=== PATIENT | female | born 1960 | race Caucasian/White ===

== ENCOUNTER 2017-02-14 21:32 | Emergency (ER) | payer OTHER ==
[~2017-02-14] VITALS: Ht 172.7 cm; Wt 84.1 kg
[~2017-02-14 21:32] MED LIST: ASPI-973 PO; ATEN50TA PO; ATOR20TA65 PO; BUSP15TA3 PO; FLUT16SP NS; HYDR-656 PO; LACT10SO60 PO; LORA-302 PO; MAGN400C PO; NALT50TA PO; PANT40TA3 PO; POTA20TA16 PO; PREN1TAB25 PO; QUET25TA73 PO; SERT50TA9 PO; SPIR25TA PO; SULF-239 PO; THIA100T64 PO; TRAZ-115 PO
[2017-02-14 21:52] VITALS: BP 148/101; PULSE 106; RESP 18; O2SAT 97
[2017-02-14] MEDS ORDERED: _LORazepam 2 MG Tablet PO SCH (23:25)
--- NOTE | 2017-02-14 23:29 | ED.REPORT ---
HPI-Overdose/Alcohol Toxicity Date of Service Feb 14, 2017 ED Provider: Ovidio Chen MD A 56 year old female with an extensive medical history including paroxysmal supraventricular tachycardia, hypertension, lupus, stroke, cirrhosis, and alcohol abuse with multiple hospitalizations for withdrawal [facility] with alcohol withdrawal and reduced appetite. The patient 's last meal or alcohol intake was three days ago. She had been drinking daily for 2.5 weeks prior to this, after being sober for 90 days. The patient currently reports nausea, vomiting, generalized pain, diaphoresis, anxious, headaches, and visual hallucinations. She denies auditory hallucinations, change in mental status, or other symptoms. Nursing Notes Stated Complaint: ALCOHOL (PT STATES GOING TO CRISIS BED) Chief Complaint: Substance Abuse Nursing Notes Reviewed: Yes Allergies: Coded Allergies: pneumococcal vaccine (Verified Allergy, Intermediate, redness, swelling of arm injected--redness into back as well, 02/14/17) Scheduled Aspirin (Aspirin) 81 Mg Tablet 81 MG PO DAILY Atenolol (Atenolol) 50 Mg Tablet 50 MG PO DAILY Atorvastatin Calcium (Atorvastatin Calcium) 20 Mg Tablet 20 MG PO HS Buspirone (Buspirone) 15 Mg Tablet 15 MG PO BID Gabapentin (Gabapentin) 300 Mg Capsule 300 MG PO TID Lactulose (Lactulose) 20 Gm/30 Ml Solution 20 GM PO TID Magnesium Oxide (Magnesium) 400 Mg Capsule 400 MG PO BID Naltrexone (Naltrexone) 50 Mg Tablet 50 MG PO DAILY Pantoprazole DR (Pantoprazole DR) 40 Mg Tablet.dr 40 MG PO DAILY Potassium Chloride (Potassium Chloride) 20 Meq Tab.er.prt 20 MEQ PO BID Potassium Chloride (Potassium Chloride) 20 Meq Tab.er.prt 20 MEQ PO BID TAKE WITH FOOD Vit#96/Ferrous Fum/FA ( Tablet) 1 Each Tablet 1 TABLET PO DAILY Quetiapine Fumarate (Seroquel) 25 Mg Tablet 25 MG PO HS Sertraline HCl (Sertraline) 50 Mg Tablet 100 MG PO DAILY Spironolactone (Aldactone) 25 Mg Tablet 25 MG PO DAILY Sulfamethoxazole/Trimeth 400-80 mg (Bactrim) 1 Each Tablet 1 TABLET PO BID Thiamine Mononitrate (Vitamin B-1) 100 Mg Tablet 100 MG PO DAILY Trazodone (Trazodone) 50 Mg Tablet 50 MG PO HS Scheduled PRN Fluticasone Propionate (Fluticasone Propionate Nasal) 16 Gm [place].susp 2 SPRAY NS DAILY PRN PRN alllergy symptoms Lorazepam (Ativan) 0.5 Mg Tablet 0.5 MG PO BID PRN PRN For Anxiety or Agitation Ondansetron (Ondansetron) 4 Mg Tablet 4 MG PO PRN For Nausea Quetiapine Fumarate (Quetiapine Fumarate) 25 Mg Tablet 25 MG PO HS PRN PRN for visual hallucination hydrOXYzine Hcl (HydrOXYzine Hcl) 25 Mg Tablet 25 MG PO TID PRN PRN For Anxiety or Agitation Miscellaneous Medications Magnesium Oxide (Magnesium) 250 Mg Tablet 250 MG PO General Time Seen by Provider: 23:24 Chief Complaint Other (Alcohol Withdrawal) Hx Obtained From: Patient Arrived By: Walk-in Onset Occurred: 3 days ago Symptom Duration: Since onset Location: : Abdomen: Back lower: Back upper: Chest: Head Quality: Painful Severity: Current: Moderate Severity: Maximum: Moderate Associated with: Reports: Nausea, Vomiting Related History: Reports: Alcoholism, Detox treatment, EtOH withdrawal Immunizations: Unknown Recent Healthcare: No recent doctor visit Similar Sx Previous: Yes Past Medical History Past Medical History Paroxysmal Supraventricular Tachycardia Hypertension Alcohol dependence: - Multiple hospitalizations for withdrawal - Episodes of alcoholic hepatitis - Cirrhosis seen on CT abdomen 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 Gambino in [place], reports it primarily involves hands with a "rheumatoid arthritis like pain" and burning in her feet. Depression/Anxiety Ulcerative colitis Stroke Past Surgical History Cataract surgery 2014 Reports: Appendectomy, Cholecystectomy, Inguinal hernia repair Family History noncontributory Smoking History Former Smoker Social History Previous suicide attempt Alcohol Use: >5 per day Drug Use: THC Other Social History: , Local resident Ambulatory Status Independent Review of Systems Review of Systems Note: + Alcohol withdrawal, generalized pain, tremor Constitutional: Denies: Fever Respiratory: Denies: Non-productive cough, Shortness of breath GI: Reports: Nausea, Vomiting Skin: Reports Diaphoresis Neurologic: Reports: Headache, Denies: Change LOC Psychiatric: Reports: Anxiety, Hallucinations, visual, Denies: Hallucinations, auditory Complete sys rev & neg: except as marked. Physical Exam Physical Exam Notes: Initial Vital Signs Vital Signs (First) Date Time Temp Pulse Resp B/P Pulse Ox O2 Delivery O2 Flow Rate FiO2 02/14/17 21:52 36.8 106 18 148/101 97 Room Air Initial VS: Reviewed, Vital signs abnormal Head / Eyes: Atraumatic, Normocephalic ENT: Conjunctiva normal, No scleral icterus Neck: Supple, Full range of motion General/Constitutional: Awake, Alert Respiratory / Chest: Breath sounds NL, Breath sounds = bilat, No respiratory distress Cardiovascular: Regular rhythm, Heart sounds NL Heart Rate / Rhythm: Positive: Tachycardia Abdomen: Soft, Non-tender Neurologic: Oriented X3, Speech NL Movement Abnormality: Positive: Tremor (Mild) Skin: Atraumatic, Color NL Color / Condition: Positive: Diaphoresis present Interpretation & Diagnostics URINE DRUG SCREEN: Negative Lab Results Interpretation Result Diagram: 02/14/17 2344 02/14/17 2344 Test 02/14/17 23:44 02/15/17 00:57 White Blood Count 11.9th/mm3 (3.8-10.1) Red Blood Count 4.50mil/mm3 (3.90-5.20) Hemoglobin 13.7g/dL (12.0-15.6) Hematocrit 40.0% (35.0-46.0) Mean Corpuscular Volume 88.9fL (81-100) Mean Corpuscular Hemoglobin 30.4pg (27.0-35.0) Mean Corpuscular Hemoglobin Concent 34.3% (32.0-37.0) Red Cell Distribution Width 13.7% (12.3-15.4) Platelet Count 199bil/L (150-400) Neutrophils (%) (Auto) 65.2% (40-74) Lymphocytes (%) (Auto) 18.7% (14-46) Monocytes (%) (Auto) 15.3% (4-12) Eosinophils (%) (Auto) 0.2% (0-5) Basophils (%) (Auto) 0.4% (0-3) Sodium Level 135mEq/L (134-144) Potassium Level 2.7mEq/L (3.5-5.2) Chloride Level 89mEq/L (97-108) Carbon Dioxide Level 27mmol/L (18-29) Blood Urea Nitrogen 5mg/dL (6-24) Creatinine 0.35mg/dL (0.57-1.00) Estimat Glomerular Filtration Rate 277mL/min (>59) Glucose Level 110mg/dL (60-99) Calcium Level 9.0mg/dL (8.5-10.1) Magnesium Level 1.1mg/dL (1.6-2.6) Total Bilirubin 2.0mg/dL (0.0-1.2) Aspartate Amino Transf (AST/SGOT) 62U/L (0-50) Alanine Aminotransferase (ALT/SGPT) 43U/L (0-32) Alkaline Phosphatase 130U/L (25-150) Total Protein 7.7g/dL (6.4-8.4) Albumin 4.1g/dL (3.4-5.0) Lipase 206U/L (13-60) Hold Urine Received (Received) Re-Eval/Medical Decision Med Decision/Clinical Course 56-year-old chronic alcoholic who just completed treatment at [facility]. She relapsed shortly after discharge from [facility], and has been using alcohol for only a short time. She is in mild withdrawal treated with lorazepam. She has hypomagnesemia and hypokalemia, both treated orally here. She is being sent to [facility] with her usual medications, Ativan taper , magnesium and potassium replacements, and ondansetron.. Source of Hx: Old records Re-Evaluation/Progress : Time of Eval: 01:00 Patient Status: Condition improved Re-Evaluation/Progress Note: Discussed with patient lab results, diagnosis, and plan for discharge. Follow-up and return to the ER instructions given. Patient agrees with plan for care and all questions were addressed. Counseled Regarding: Diagnosis, Lab results, Need for follow-up, When/why to return to ED Discharge & Departure Impression: Primary Impression: Alcohol withdrawal Complication of substance-induced condition: uncomplicated Qualified Code: F10.230 - Alcohol dependence with withdrawal, uncomplicated Additional Impressions: Hypokalemia Hypomagnesemia )( Condition at Discharge: No danger to self, No danger to others, No suicidal ideation, No homicidal ideation, Clear for alcohol rehab Disposition: Home Discharge Condition All VS Reviewed: Yes Condition: Improved Patient Instructions: Alcohol Withdrawal (ED) Additional Instructions: Your potassium and magnesium were both low. Potassium chloride 20 mEq one pill twice daily. Magnesium oxide 250 mg 1 pill twice daily. Lorazepam taper per the label. Take all your other medications as prescribed. Referrals: NOPCP (PCP) Scribe Attestation Portions of this note were transcribed by Vicki Waterman. I, Dr. Chen, personally performed the history, physical exam, and medical decision-making; I reviewed and confirmed the accuracy of the information in the transcribed note. Signed by: Luma Martinez, 02/15/2017, 02:10 Ovidio Chen MD Feb 14, 2017 23:29 VICKI WATERMAN Feb 15, 2017 00:29
[2017-02-14 23:53] LABS: BASOPHILS % (AUTO) 0.4 % (0-3); EOSINOPHILS % (AUTO) 0.2 % (0-5); MONOCYTES % (AUTO) 15.3 % (4-12); Mean Corpuscular Hemoglobin 30.4 pg (27.0-35.0); Mean Corpuscular Volume 88.9 fL (81-100); NEUTROPHILS % (AUTO) 65.2 % (40-74); Platelet Count 199 bil/L (150-400)
[2017-02-15] MEDS ORDERED: ONDA-53 PO (00:07)
[2017-02-15] MEDS ORDERED: MAGN250T29 PO (00:07)
[2017-02-15] MEDS ORDERED: QUET25TA PO (00:07)
[2017-02-15] MEDS ORDERED: GABA-502 PO (00:07)
[2017-02-15 00:30] LABS: Magnesium 1.1 mg/dL (1.6-2.6)
[2017-02-15] MEDS ORDERED: Ondansetron 8 mg ODT Tablet PO ONE (00:30)
[2017-02-15] MEDS ORDERED: LORazepam 1 mg Tablet PO ONE (00:30)
[2017-02-15] MEDS ORDERED: Potassium Chloride 20 mEq SR Tablet PO ONE (00:35)
[2017-02-15 00:47] VITALS: BP 144/87; PULSE 101; RESP 20; O2SAT 93
[2017-02-15] MEDS ORDERED: POTA20TA16 PO (00:59)
[2017-02-15 01:04] VITALS: BP 144/87; PULSE 101; RESP 20; O2SAT 93
== END 2017-02-15 01:39 | disposition home or self-care (01) ==
LOC: SED 21:32
DX: F10.230 Alcohol dependence with withdrawal, uncomplicated (principal); E87.6 Hypokalemia; E83.42 Hypomagnesemia; I10 Essential (primary) hypertension; M06.9 Rheumatoid arthritis, unspecified; M32.9 Systemic lupus erythematosus, unspecified; Z86.73 Personal history of transient ischemic attack (TIA), and cerebral infarction without residual deficits; Z87.891 Personal history of nicotine dependence; Z79.82 Long term (current) use of aspirin

== ENCOUNTER 2017-07-04 09:12 | Emergency (ER) | payer MEDICAID, OTHER ==
[~2017-07-04] VITALS: Ht 172.7 cm; Wt 84.1 kg
[~2017-07-04 09:12] MED LIST changes: +GABA-502 PO; +MAGN250T29 PO; +ONDA-53 PO; +QUET25TA PO
[2017-07-04 09:17] VITALS: BP 119/82; PULSE 62; RESP 16; O2SAT 97
--- NOTE | 2017-07-04 09:34 | ED.REPORT ---
HPI-Extremity Problem Lower Date of Service Jul 04, 2017 ED Provider: Enrrique Choi MD Pt is a 56 y/o female w/ a hx of arthritis, alcohol abuse in recovery, HTN, presenting to the ED via EMS c/o left knee injury which occurred prior to arrival. The patient was picking up trash for the community and after a twisting motion she heard her left knee pop and immediately experienced severe left knee pain causing her to be unable to ambulate. She was able to let herself down to the ground without falling or causing any other injury. Pt denies numbness/weakness. She is living at [facility] rehab facility due to alcohol abuse, last drink January 2017. Nursing Notes Stated Complaint: LEFT KNEE PAIN Chief Complaint: Multiple Trauma/Fall Nursing Notes Reviewed: Yes Allergies: Coded Allergies: pneumococcal vaccine (Verified Allergy, Intermediate, redness, swelling of arm injected--redness into back as well, 07/04/17) Scheduled Aspirin (Aspirin) 81 Mg Tablet 81 MG PO DAILY Atenolol (Atenolol) 50 Mg Tablet 50 MG PO DAILY Atorvastatin Calcium (Atorvastatin Calcium) 20 Mg Tablet 20 MG PO HS Buspirone (Buspirone) 15 Mg Tablet 15 MG PO BID Gabapentin (Gabapentin) 300 Mg Capsule 300 MG PO TID Lactulose (Lactulose) 20 Gm/30 Ml Solution 20 GM PO TID Magnesium Oxide (Magnesium) 400 Mg Capsule 400 MG PO BID Naltrexone (Naltrexone) 50 Mg Tablet 50 MG PO DAILY Pantoprazole DR (Pantoprazole DR) 40 Mg Tablet.dr 40 MG PO DAILY Potassium Chloride (Potassium Chloride) 20 Meq Tab.er.prt 20 MEQ PO BID Potassium Chloride (Potassium Chloride) 20 Meq Tab.er.prt 20 MEQ PO BID TAKE WITH FOOD Vit#96/Ferrous Fum/FA ( Tablet) 1 Each Tablet 1 TABLET PO DAILY Quetiapine Fumarate (Seroquel) 25 Mg Tablet 25 MG PO HS Sertraline HCl (Sertraline) 50 Mg Tablet 100 MG PO DAILY Spironolactone (Aldactone) 25 Mg Tablet 25 MG PO DAILY Sulfamethoxazole/Trimeth 400-80 mg (Bactrim) 1 Each Tablet 1 TABLET PO BID Thiamine Mononitrate (Vitamin B-1) 100 Mg Tablet 100 MG PO DAILY Trazodone (Trazodone) 50 Mg Tablet 50 MG PO HS Scheduled PRN Fluticasone Propionate (Fluticasone Propionate Nasal) 16 Gm [place].susp 2 SPRAY NS DAILY PRN PRN alllergy symptoms Lorazepam (Ativan) 0.5 Mg Tablet 0.5 MG PO BID PRN PRN For Anxiety or Agitation Ondansetron (Ondansetron) 4 Mg Tablet 4 MG PO PRN For Nausea Quetiapine Fumarate (Quetiapine Fumarate) 25 Mg Tablet 25 MG PO HS PRN PRN for visual hallucination hydrOXYzine Hcl (HydrOXYzine Hcl) 25 Mg Tablet 25 MG PO TID PRN PRN For Anxiety or Agitation Miscellaneous Medications Magnesium Oxide (Magnesium) 250 Mg Tablet 250 MG PO General Time Seen by MD: 09:32 Chief Complaint Knee injury left Hx Obtained From: Patient, EMS Arrived By: Ambulance Onset Occurred: Just prior to arrival Symptom Duration: Since onset Location: : Knee left Quality: Painful Severity: Current: Moderate Severity: Maximum: Moderate Exacerbated by: Range of motion Similar Sx Previous: No Past Medical History Past Medical History Paroxysmal Supraventricular Tachycardia Hypertension Alcohol dependence: - Multiple hospitalizations for withdrawal - Episodes of alcoholic hepatitis - Cirrhosis seen on CT abdomen 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 Gambino in [place], reports it primarily involves hands with a "rheumatoid arthritis like pain" and burning in her feet. Depression/Anxiety Ulcerative colitis Stroke Past Surgical History Cataract surgery 2014 Reports: Appendectomy, Cholecystectomy, Inguinal hernia repair Family History noncontributory Smoking History Former Smoker Social History Previous suicide attempt Alcohol Use: >5 per day Drug Use: THC Other Social History: , Local resident Ambulatory Status Independent Review of Systems Musculoskeletal: Reports: Extremity pain, Extremity swelling, Joint pain Neurologic: Denies: Numbness, Weakness Complete sys rev & neg: except as marked. Physical Exam Initial Vital Signs Vital Signs (First) Date Time Temp Pulse Resp B/P Pulse Ox O2 Delivery O2 Flow Rate FiO2 07/04/17 09:17 36.1 62 16 119/82 97 Room Air Initial VS: Reviewed, Vital signs normal Head / Eyes: Atraumatic, Normocephalic ENT: Mucous membranes moist, Conjunctiva normal, No scleral icterus Neck: Supple, Non-tender, Full range of motion Respiratory: Breath sounds normal, Clear to auscultation, No respiratory distress Cardiovascular: Regular rate & rhythm, Heart sounds normal, Intact distal pulses Abdomen / GI: Soft, Non-tender Upper Extremities: Vascular intact, Neuro intact, No swelling Skin: Warm, Dry, No cyanosis Neurologic: Alert, Oriented, Nonfocal Psychiatric: Mood/affect normal, Behavior normal, Normal thought content Lower Extremity / Pelvis / MS: No deformity, Neurologic intact, Vascular intact Left knee: Warm Mildly swollen No erythema Limited flexion Unable to straighten the leg past 10-15 degrees Unable to bend more than 35 degrees Trochanteric bursa of the left hip is tender to touch Ankle / Foot: Atraumatic, Full range of motion, No swelling, No erythema, Non- tender, No deformity, Neurologic intact, Vascular intact Interpretation & Diagnostics Interpretation & Diagnostics: CT L knee without contrast: IMPRESSION: No acute bony injuries of the left knee. Nonspecific small left knee joint effusion may be consistent with soft tissue injury. Dictated by: Lon Nichole M.D. on 07/04/2017 at 10:45 Approved by: Lon Nichole M.D. on 07/04/2017 at 10:49 X-Ray Interpretation Xray Interpretation: IMPRESSION: No acute bony injuries of the left knee. Nonspecific small left knee joint effusion may indicate soft tissue injury. Dictated by: Lon Nichole M.D. on 07/04/2017 at 10:05 Approved by: Lon Nichole M.D. on 07/04/2017 at 10:06 Study Performed: 3 views X-Ray Ordered: Knee left Interpretation / Wet Read by: Interpret - Radiologist Re-Eval/Medical Decision Source of Hx: Old records, EMS Re-Evaluation/Progress #1: Time of Eval: 10:08 Re-Evaluation/Progress Note: Pt rechecked. Cannot bear weight with walker. Discussed need for CT. She agrees with plan. Re-Evaluation/Progress #2: Time of Eval: 11:12 Re-Evaluation/Progress Note: Pt rechecked. Re-examined. Decided against MR due to unlikely chance of fracture or severe injury requiring immediate surgery. Re-Evaluation/Progress #3: Time of Eval: 12:07 Re-Evaluation/Progress Note: Pt rechecked. Informed pt of plan for discharge. Pt understands and agrees with plan for discharge. F/U instructions and RTER warnings given. All questions addressed. Counseled Regarding: Diagnosis, Need for follow-up, When/why to return to ED Discharge & Departure Impression: Primary Impression: Left leg pain Disposition: Home Discharge Condition All VS Reviewed: Yes Condition: Stable Patient Instructions: Contusion in Adults (ED) Additional Instructions: No fracture was identified in the knee. You have a lot of pain throughout your leg and the cause for it is not clear to me. I believe that we have sufficiently excluded immediately dangerous causes at this point. I think outpatient follow-up at the clinic will be sufficient. I recommend Tylenol or ibuprofen for pain and crutch walking as well. Clinic will call later today with appointment time later this week. Referrals: Miryam Link DO (PCP) Scribe Attestation Portions of this note were transcribed by Raad Jimenez. I, Dr. Choi personally performed the history, physical exam and medical decision-making; I reviewed and confirmed the accuracy of the information in the transcribed note. copies to: Miryam Link Kirk H MD Jul 04, 2017 09:34 RAAD JIMENEZ Jul 04, 2017 09:39
--- NOTE | 2017-07-04 10:08 | DRSVH ---
PROCEDURE: X-RAY LEFT KNEE, THREE VIEWS ([id number]) INDICATIONS: 56 year-old female with left knee pain after fall. TECHNIQUE: 3 views of the knee were acquired. COMPARISON: [facility], , XR KNEE 3VW LT, 07/12/2016, 21:25. FINDINGS: Bones: No fractures or dislocations. No suspicious bony lesions. Soft tissues: There is small joint effusion. No suspicious soft tissue calcifications. There is sca ttered popliteal artery atherosclerosis. IMPRESSION: No acute bony injuries of the left knee. Nonspecific small left knee joint effusion may i ndicate soft tissue injury. Dictated by: Lon Nichole M.D. on 07/04/2017 at 10:05 Approved by: Lon Nichole M.D. on 07/04/2017 at 10:06
--- NOTE | 2017-07-04 10:51 | DRSVH ---
PROCEDURE: CT KNEE LEFT W/O CONTRAST ([id number]) INDICATIONS: 56 year-old female with left knee trauma. TECHNIQUE: Noncontrast 1-1.5 mm axial sections acquired from the mid-patella to the proximal tibia, with coronal and sagittal reformats. COMPARISON: [facility], CR, XR KNEE 3VW LT, 07/04/2017, 9:48. FINDINGS: Image quality: Excellent. Bones: No fractures or dislocations. No suspicious lytic or blastic bony lesions. No osteophyte forma tion. Soft tissues: There is small knee joint effusion, without lipohemarthrosis. Extensor mechanism appear s intact. Knee joint ligaments and tendons are not well visualized. There is patchy popliteal artery atherosclerosis. IMPRESSION: No acute bony injuries of the left knee. Nonspecific small left knee joint effusion may b e consistent with soft tissue injury. Dictated by: Lon Nichole M.D. on 07/04/2017 at 10:45 Approved by: Lon Nichole M.D. on 07/04/2017 at 10:49
== END 2017-07-04 12:29 | disposition home or self-care (01) ==
LOC: EDUNIT# 09:12 → SED 09:12 → EDBD 09:12 → SED 12:29
DX: M79.662 Pain in left lower leg (principal); I10 Essential (primary) hypertension; Z86.73 Personal history of transient ischemic attack (TIA), and cerebral infarction without residual deficits; Z87.891 Personal history of nicotine dependence; Z79.82 Long term (current) use of aspirin; Z88.7 Allergy status to serum and vaccine